=== PATIENT | male | born 1985 | race Two or more races ===

== ENCOUNTER 2018-02-17 03:18 | Emergency (ER) | payer OTHER ==
[~2018-02-17] VITALS: Ht 182.9 cm; Wt 89.8 kg
[2018-02-17] MEDS ORDERED: DUI500 PO (04:42)
[2018-02-17] MEDS ORDERED: MUPIROCIN22 GM TOP (04:42)
[2018-02-17] MEDS ORDERED: KETO10TA2 PO (04:42)
== END 2018-02-17 04:48 | disposition home or self-care (01) ==
LOC: ER 03:18
DX: L08.89 Other specified local infections of the skin and subcutaneous tissue (principal)

== ENCOUNTER 2018-02-24 00:18 | Emergency (ER) | payer OTHER ==
[~2018-02-24] VITALS: Ht 182.9 cm; Wt 85.7 kg
[~2018-02-24 00:18] MED LIST: DUI500 PO; KETO10TA2 PO; MUPIROCIN22 GM TOP
== END 2018-02-24 16:53 | disposition home or self-care (01) ==
LOC: ER 00:18
DX: F14.23 Cocaine dependence with withdrawal (principal); G44.40 Drug-induced headache, not elsewhere classified, not intractable; T40.5X5A Adverse effect of cocaine, initial encounter